=== PATIENT | male | born 1975 | race Caucasian/White ===

== ENCOUNTER 2021-12-04 09:00 | Outpatient (RCR) | payer OTHER, SELFPAY ==
--- NOTE | 2021-10-21 09:01 | PT.OIE ---
Current Diagnoses Scoliosis, unspecified (10/21/21) Low back pain, unspecified (10/21/21) Abnormal posture (10/21/21) Weakness (10/21/21) Visit Care Team Role Provider Type Eliu Domínguez DO Attending Provider Non-Staff Family Provider Primary Care Provider Referring Provider Specialty: Family Practice Address: [address] [place] [address], [id number] Email: Physical Therapy Initial Evaluation PT-OP-A Visit Information Start: 10/17/21 16:34 Freq: Status: Active Protocol: Document 10/21/21 09:01 SAK (Rec: 10/21/21 09:56 SAK [id number]) Out-Patient Physical Therapy Visit Information Visit Information Visit Type Initial Evaluation Visit Start Time 09:00 Visit Stop Time 09:45 Total Visit Minutes 45 Visit Number 1 Evaluation Information Evaluation Date 10/21/21 PT-OP-B Current Condition Start: 10/17/21 16:34 Freq: Status: Active Protocol: Document 10/21/21 09:01 SAK (Rec: 10/21/21 09:56 SAK [id number]) Current Condition History of Current Condition Onset Date 2018 Current Complaints persistent LBP History of Current Condition Went running one night 2018 , a little sore in low back , more sore next day. After resting for a week without improvement started PT, thought all better. Pain came back, had more PT, never has completely gone away and continues to limit his activity. Does PT HEP 4x/wk plus weight lifting after PT exercises. Feels ok after the workouts. Most pain when bending down to pick something up, increased pain with sitting in car , pain when first getting up in am, and with running. Now does inimal running, doing on soft surfaces, puts only 300 miles on a pair of shoes before replacing. 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 Retired from [employer] in November, at most recent appointment with physician discussed chronic pain and was referred to PT. 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 Has Theragun, has foam roller. Sleeps on chest trying to more often sleep on side. Does road and mountain bikiing as well as swimming several times per week, mostly freestyle and breaths only to left. Has had gait and running form evaluation, reports he lands with neutral foot. 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 swims 2 1/2 miles per week primarily freestyle, pain-free Treatment Goals Patient/Caregiver Goals pain-free mobility Prior Functional Status Baseline Function- ADL's Independent Baseline Function- Mobility Independent Baseline Function- Gait indep Baseline Function- Recreation/Hobbies no pain with any recreation Current Functional Impairments (Reported) Functional Limitations- ADL's painful Functional Limitations- Mobility/Gait painful Functional Limitations- Work/School retired Functional Limitations- Recreation/ painful Hobbies PT-OP-C Subjective Start: 10/17/21 16:34 Freq: Status: Active Protocol: Document 10/21/21 09:01 [facility] (Rec: 10/22/21 08:56 [facility] [id number]) OP-PT Pain Assessment Pain Assessment Grid Paper Pain Assessment Grid Completed Yes Location left lumbar spine Intensity 3 Scale Used Numeric (0 - 10) Description Aching,Burning,Tightness Frequency Frequent Pain Aggravating Factors Position,Activity Home Pain Medication Use Pain Medications Used No PT-OP-G Mobility & Gait Start: 10/17/21 16:34 Freq: Status: Active Protocol: Document 10/21/21 09:01 [facility] (Rec: 10/22/21 08:56 [facility] [id number]) OP Gait Assessment Gait Gait Assistance Required: Independent Assistive Devices Assistive Device None PT-OP-H Neuro Start: 10/17/21 16:34 Freq: Status: Active Protocol: Document 10/21/21 09:01 [facility] (Rec: 10/22/21 08:56 [facility] [id number]) Sensation Evaluation Gross Sensation Gross Sensation WNL PT-OP-J Posture/Palpation/Skin Start: 10/17/21 16:34 Freq: Status: Active Protocol: Document 10/21/21 09:01 [facility] (Rec: 10/22/21 08:56 [facility] [id number]) Posture Evaluation Position Standing T-Spine Posture Flexible Scoliosis on (R), Fixed Scoliosis on (R) Thorax Posture (R) Prominent L-Spine Posture Fixed Scoliosis on (L) Arm Posture (L) Neutral,(R) Neutral Pelvis Posture Neutral Palpation Assessment Location left L#$ Palpation Findings Soft Tissue Tightness, Tenderness PT-OP-K Range of Motion Start: 10/17/21 16:34 Freq: Status: Active Protocol: Document 10/21/21 09:01 [facility] (Rec: 10/22/21 08:56 [facility] [id number]) Lumbar Spine Range of Motion Lumbar Spine Active Flexion 40 Extension 20 Rotation Left 15 Rotation Right 20 Lateral Flexion Left 40 Lateral Flexion Right 30 Comments painful left sidebending Hip Goniometric Range of Motion Hip Left Flexion w/Knee Flexed 120 Straight Leg Raise 60 Internal Rotation 15 External Rotation 50 Right Flexion w/Knee Flexed 130 Straight Leg Raise 70 Internal Rotation 30 External Rotation 70 Hip ROM Limitations Hip ROM Limitations Soft Tissue Tightness PT-OP-L Special Tests Start: 10/17/21 16:34 Freq: Status: Active Protocol: Document 10/21/21 09:01 [facility] (Rec: 10/22/21 11:03 [facility] [id number]) Special Tests Lumbar Spine Special Tests Straight Leg Raise Test Results negative Standing Flexion Test Results decreased ROM, no radicular symptoms Slump Test Results negative Neural Special Tests- Lower Body Sciatic Nerve Tension Test Results negative PT-OP-M Strength Start: 10/17/21 16:34 Freq: Status: Active Protocol: Document 10/21/21 09:01 [facility] (Rec: 10/22/21 11:03 [facility] [id number]) Hip Strength Hip Manual Muscle Testing Left Flexion (L2) 4+ Good+ Extension (S1) 4+ Good+ Abduction 4+ Good+ Adduction 4+ Good+ External Rotation 4 Good Internal Rotation 4 Good Right Flexion (L2) 4+ Good+ Extension (S1) 4 Good Abduction 4+ Good+ Adduction 4+ Good+ External Rotation 4 Good Internal Rotation 4+ Good+ Knee Strength Knee Manual Muscle Testing Left Flexion (S2) 5 Normal Extension (L3) 5 Normal Right Flexion (S2) 5 Normal Extension (L3) 5 Normal Ankle/Foot Strength Ankle and Foot Manual Muscle Testing Left Dorsiflexion (L4) 5 Normal Plantarflexion (S1) 5 Normal Right Dorsiflexion (L4) 5 Normal Plantarflexion (S1) 5 Normal PT-OP-Q Treatments Start: 10/17/21 16:34 Freq: Status: Active Protocol: Document 10/21/21 09:01 [facility] (Rec: 10/22/21 11:03 [facility] [id number]) Self-Care/Home Management Treatment Education Patient Education Body Mechanics,Home Exercise Program Other Education bed positioning use of pillow between knees and towel under side self-examination of habitual postures and movements try breathing to with swimming open book exercise PT-OP-R Modalities Start: 10/17/21 16:34 Freq: Status: Active Protocol: Document 10/21/21 09:01 [facility] (Rec: 10/22/21 11:03 [facility] [id number]) Hot Pack/Cold Pack Treatment Hot Pack Location lumbar spine Patient Position Hooklying Patient Tolerance Good PT-OP-T Assessment and Plan Start: 10/17/21 16:34 Freq: Status: Active Protocol: Document 10/21/21 09:01 [facility] (Rec: 10/21/21 09:56 [facility] [id number]) Physical Therapy Assessment Rehab Potential Rehabilitation Potential Good Evaluation Complexity Number of Personal Factors/Comorbidities 1-2 Number of Body Systems Impaired 3 Clinical Presentation at Evaluation Evolving Impairments Impairments Activity Tolerance,Pain,Soft Tissue Mobility,Strength Goals Three Impairment habitual movement patterns and movements contributing to pain Impairment Patient swims up to 2 miles 3x /wk and only turns head to the right to breath , sleeps prone, potential other habitual posturing and movement contributing to pain Short Term Goal (STG) Patient to be able to begin turning head bilaterally to be able to breath during swimming, modify sleep positioning and work to identify any other habitual movements or positions that may conribute to his pain and movement impairment STG Duration 11/20/21 [facility] Living Goal (LTG) Patient will demonstrate good understanding of potential contribution of habitual postures and movements to his pain. LTG Duration 12/21/21 Two Impairment strength and ROM impairments, scoliosis Impairment muscle imbalances noted in core and hips including decreased ability to stabilize core, decreased flexibility left hip, decreased lumbar rotation, decreased hip extension right. 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 Pain onset was after a run in 2018, he now limits his running to occasional and shorter distances on softer surfaces, and replaces his running shoes frequently. Has had prior PT , massage therapy, gait and running evaluation. Evaluation reveals impairments in ROM and strength in hips and lumbar spine, mild scolioosis right thoracic left lumbar increased evidence with forward flexion , pain left sidebending, dec lumbar rotation to the left , weak right hip ext, decreased core stabilization, pain to palp left lateral L3-4 region with decreased mobility. Feel he would benefit from physical therapy to review current PT HEP and weight-lifting routine for correct mechanics and core stabilization, modify as indicated to address above impairments. Modalities and manual therapy as indicated for decreased pain and improved soft tissue and joint mobility. Discussed the importance of examining habitual movements and posturing for potential contributions and recommended patient work to be able to turn head bilaterally to breath with swimming. Patient instructed in importance of spinal support with sleeping, discontinue sleeping prone, used SHARA technique for demonstration and was issued written handout. Discussed POC and patient is in agreement. He is highly motivated and receptive to instruction and feedback. Physical Therapy Plan Frequency and Duration Frequency of Treatment 2x/Week Duration of Treatment 8 Plan of Care Start Date 10/21/21 Plan of Care End Date 12/21/21 Therapeutic Interventions Therapeutic Interventions Aquatic Therapy Next Visit Focus/Plan Next Note Type Treatment Note Next Visit Plan Review HEP and weight-lifting mechanics, discuss any habitual postures and movements identified, review open book exercise with manual facilitation, supine trunk rotation with therapy ball, instruct in self-massage with ball, do Sy test.
--- NOTE | 2021-10-23 16:29 | PT.OTN ---
Current Diagnoses Scoliosis, unspecified (10/23/21) Low back pain, unspecified (10/23/21) Abnormal posture (10/23/21) Weakness (10/23/21) Physical Therapy Treatment Note PT-OP-A Visit Information Start: 10/17/21 16:34 Freq: Status: Active Protocol: Document 10/23/21 16:07 SAK (Rec: 10/23/21 16:29 SAK [id number]) Out-Patient Physical Therapy Visit Information Visit Information Visit Type Treatment Note Visit Start Time 09:00 Visit Stop Time 09:55 Total Visit Minutes 55 Visit Number 2 Evaluation Information Evaluation Date 10/21/21 PT-OP-B Current Condition Start: 10/17/21 16:34 Freq: Status: Active Protocol: Document 10/23/21 16:07 SAK (Rec: 10/23/21 16:29 SAK [id number]) Current Condition History of Current Condition Onset Date 2017 Current Complaints persistent LBP History of Current Condition Went running one night 2018 , a little sore in low back , more sore next day. After resting for a week without improvement started PT, thought all better. Pain came back, had more PT, never has completely gone away and continues to limit his activity. Does PT HEP 4x/wk plus weight lifting after PT exercises. Feels ok after the workouts. Most pain when bending down to pick something up, increased pain with sitting in car , pain when first getting up in am, and with running. Now does inimal running, doing on soft surfaces, puts only 300 miles on a pair of shoes before replacing. 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 Retired from [employer] in November, at most recent appointment with physician discussed chronic pain and was referred to PT. 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 Has Theragun, has foam roller. Sleeps on chest trying to more often sleep on side. Does road and mountain bikiing as well as swimming several times per week, mostly freestyle and breaths only to left. Has had gait and running form evaluation, reports he lands with neutral foot. 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 swims 2 1/2 miles per week primarily freestyle, pain-free Treatment Goals Patient/Caregiver Goals pain-free mobility Prior Functional Status Baseline Function- ADL's Independent Baseline Function- Mobility Independent Baseline Function- Gait indep Baseline Function- Recreation/Hobbies no pain with any recreation Baseline Function- Other bunions to left greater than right Current Functional Impairments (Reported) Functional Limitations- ADL's painful Functional Limitations- Mobility/Gait painful Functional Limitations- Work/School retired Functional Limitations- Recreation/ painful Hobbies PT-OP-C Subjective Start: 10/17/21 16:34 Freq: Status: Active Protocol: Document 10/23/21 16:07 [facility] (Rec: 10/23/21 16:29 [facility] [id number]) OP-PT Subjective Patient Comments Patient Comments Reports noticed some twinging with some asymmetrical weight- lifting movements. Tried to do to head turning for breathing with swimming but had difficulty. States does use a therapy ball for self- massage occasionally in low back. Tried using pillow for spinal support, no big difference noted, not sure if will continue. PT-OP-G Mobility & Gait Start: 10/17/21 16:34 Freq: Status: Active Protocol: Document 10/21/21 09:01 [facility] (Rec: 10/22/21 08:56 [facility] [id number]) OP Gait Assessment Gait Gait Assistance Required: Independent Assistive Devices Assistive Device None PT-OP-H Neuro Start: 10/17/21 16:34 Freq: Status: Active Protocol: Document 10/21/21 09:01 [facility] (Rec: 10/22/21 08:56 [facility] [id number]) Sensation Evaluation Gross Sensation Gross Sensation WNL PT-OP-J Posture/Palpation/Skin Start: 10/17/21 16:34 Freq: Status: Active Protocol: Document 10/21/21 09:01 [facility] (Rec: 10/22/21 08:56 [facility] [id number]) Posture Evaluation Position Standing T-Spine Posture Flexible Scoliosis on (R), Fixed Scoliosis on (R) Thorax Posture (R) Prominent L-Spine Posture Fixed Scoliosis on (L) Arm Posture (L) Neutral,(R) Neutral Pelvis Posture Neutral Palpation Assessment Location left L#$ Palpation Findings Soft Tissue Tightness, Tenderness PT-OP-K Range of Motion Start: 10/17/21 16:34 Freq: Status: Active Protocol: Document 10/21/21 09:01 [facility] (Rec: 10/22/21 08:56 [facility] [id number]) Lumbar Spine Range of Motion Lumbar Spine Active Flexion 40 Extension 20 Rotation Left 15 Rotation Right 20 Lateral Flexion Left 40 Lateral Flexion Right 30 Comments painful left sidebending Hip Goniometric Range of Motion Hip Left Flexion w/Knee Flexed 120 Straight Leg Raise 60 Internal Rotation 15 External Rotation 50 Right Flexion w/Knee Flexed 130 Straight Leg Raise 70 Internal Rotation 30 External Rotation 70 Hip ROM Limitations Hip ROM Limitations Soft Tissue Tightness PT-OP-L Special Tests Start: 10/17/21 16:34 Freq: Status: Active Protocol: Document 10/21/21 09:01 [facility] (Rec: 10/22/21 11:03 [facility] [id number]) Special Tests Lumbar Spine Special Tests Straight Leg Raise Test Results negative Standing Flexion Test Results decreased ROM, no radicular symptoms Slump Test Results negative Neural Special Tests- Lower Body Sciatic Nerve Tension Test Results negative PT-OP-M Strength Start: 10/17/21 16:34 Freq: Status: Active Protocol: Document 10/21/21 09:01 [facility] (Rec: 10/22/21 11:03 [facility] [id number]) Hip Strength Hip Manual Muscle Testing Left Flexion (L2) 4+ Good+ Extension (S1) 4+ Good+ Abduction 4+ Good+ Adduction 4+ Good+ External Rotation 4 Good Internal Rotation 4 Good Right Flexion (L2) 4+ Good+ Extension (S1) 4 Good Abduction 4+ Good+ Adduction 4+ Good+ External Rotation 4 Good Internal Rotation 4+ Good+ Knee Strength Knee Manual Muscle Testing Left Flexion (S2) 5 Normal Extension (L3) 5 Normal Right Flexion (S2) 5 Normal Extension (L3) 5 Normal Ankle/Foot Strength Ankle and Foot Manual Muscle Testing Left Dorsiflexion (L4) 5 Normal Plantarflexion (S1) 5 Normal Right Dorsiflexion (L4) 5 Normal Plantarflexion (S1) 5 Normal PT-OP-Q Treatments Start: 10/17/21 16:34 Freq: Status: Active Protocol: Document 10/23/21 16:07 [facility] (Rec: 10/23/21 16:29 [facility] [id number]) Therapeutic Exercises Supine Exercises deondre test Reps/Minutes to x 10 Prone Exercises child's pose Prone Exercise Name forward and lateral Reps/Minutes 2x cat/cow Reps/Minutes 5x Comments cues for segmental movement, breath with movement bird dog Prone Exercise Name regular, with UE out to side Reps/Minutes 10x Comments cues for neutral pelvis Sidelying Exercises side plank Comments verbal review open book Reps/Minutes 5x to Comments verbal and manual cues for segmental movement, deep breath Sitting Exercises piriformis stretch Comments encouraged inc stretch of left ; in waiting room right crossed over left Standing Exercises lateral trunk flexion Reps/Minutes 1x30 to lift Resistance 10# to Reps/Minutes 5x Comments picture taken for symmetry at hips and pelvis, verbal and manual cues, Manual Therapy Treatment Soft Tissue Mobilization lumbar paraspinals, QL Body Location to left greater than right Mobilization Type Myofascial Release,Strumming, Sustained Pressure Intensity/Depth Moderate Body Position Prone Self-Care/Home Management Treatment Education Patient Education Body Mechanics,Home Exercise Program,Posture Other Education continue self-examination of habitual postures and movements, inc self-massage with ball, do symmetrical load lift, dec trunk rotation with bird dog PT-OP-R Modalities Start: 10/17/21 16:34 Freq: Status: Active Protocol: Document 10/23/21 16:07 [facility] (Rec: 10/23/21 16:29 [facility] [id number]) Hot Pack/Cold Pack Treatment Hot Pack Location lumbar spine Patient Position Prone Treatment Duration (minutes) 15 Patient Tolerance Good PT-OP-T Assessment and Plan Start: 10/17/21 16:34 Freq: Status: Active Protocol: Document 10/23/21 16:07 [facility] (Rec: 10/23/21 16:29 [facility] [id number]) Physical Therapy Assessment Goals Three Impairment habitual movement patterns and movements contributing to pain Impairment Patient swims up to 2 miles 3x /wk and only turns head to the right to breath , sleeps prone, potential other habitual posturing and movement contributing to pain Short Term Goal (STG) Patient to be able to begin turning head bilaterally to be able to breath during swimming, modify sleep positioning and work to identify any other habitual movements or positions that may conribute to his pain and movement impairment STG Duration 11/20/21 [facility] Goal (LTG) Patient will demonstrate good understanding of potential contribution of habitual postures and movements to his pain. LTG Duration 12/21/21 Two Impairment strength and ROM impairments, scoliosis Impairment muscle imbalances noted in core and hips including decreased ability to stabilize core, decreased flexibility left hip, decreased lumbar rotation, decreased hip extension right. Mild scoliosis Short Term Goal (STG) Patient's current HEP and weight-lifting routine to be reviewed for correct body mechanics, core stabilization and performance STG Duration 11/20/21 [facility] Goal (LTG) Patient will be able to perform HEP and weight-lifting routine with good mechanics and core stabilization and demonstrate 5/5 muscle strength bilaterally and symmetrical flexibility and ROM within 5 deg all motions hips and lumbar spine LTG Duration 12/21/21 One Impairment pain left low back 3/10 Impairment pain increases above 3/10 with bending, prolonged sitting or standing, sleeping [facility]dc Goal (LTG) Pain no greater than 1/10 with all usual activities and positions to improve quality of life and ability to do prior activities LTG Duration 12/21/21 Assessment Summary Assessment Patient tried use of pillow for support in bed, inconclusive in benefit. Trying to change swimming technique to allow for bilateral head turns; very difficult. Recommendations for modifications of some of his HEP done today as noted above, written handout issued. Patient brought his workout folder with ex photos for further review, and will bring next session as well. STM to left lumbar paraspinals and QL due to palpable tightness followed by moist heat today. Continue to stress self- examination for postures and movements that are asymmetrical. Feel patient bunions may be contributory as well. Physical Therapy Plan Frequency and Duration Frequency of Treatment 2x/Week Duration of Treatment 8 Plan of Care Start Date 10/21/21 Plan of Care End Date 12/21/21 Therapeutic Interventions Therapeutic Interventions Aquatic Therapy Next Visit Focus/Plan Next Note Type Treatment Note Next Visit Plan consider ultrasound, kinesiotape to left QL, paraspinals, manual traction trial, continue review and modification as indicated for patient's current HEP. Further single leg work as patient less stable SLS left, shuttle balance, single leg heel raise.
--- NOTE | 2021-10-29 14:21 | PT.OTN ---
Current Diagnoses Scoliosis, unspecified (10/29/21) Low back pain, unspecified (10/29/21) Abnormal posture (10/29/21) Weakness (10/29/21) Physical Therapy Treatment Note PT-OP-A Visit Information Start: 10/17/21 16:34 Freq: Status: Active Protocol: Document 10/29/21 09:01 [facility] (Rec: 10/29/21 09:44 [facility] [id number]) Out-Patient Physical Therapy Visit Information Visit Information Visit Type Treatment Note Visit Start Time 09:00 Visit Stop Time 09:55 Total Visit Minutes 55 Visit Number 3 Evaluation Information Evaluation Date 10/21/21 PT-OP-B Current Condition Start: 10/17/21 16:34 Freq: Status: Active Protocol: Document 10/29/21 09:01 [facility] (Rec: 10/29/21 09:44 [facility] [id number]) Current Condition History of Current Condition Onset Date 2018 Current Complaints persistent LBP History of Current Condition Went running one night 2018 , a little sore in low back , more sore next day. After resting for a week without improvement started PT, thought all better. Pain came back, had more PT, never has completely gone away and continues to limit his activity. Does PT HEP 4x/wk plus weight lifting after PT exercises. Feels ok after the workouts. Most pain when bending down to pick something up, increased pain with sitting in car , pain when first getting up in am, and with running. Now does inimal running, doing on soft surfaces, puts only 300 miles on a pair of shoes before replacing. 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 Retired from [employer] in November, at most recent appointment with physician discussed chronic pain and was referred to PT. 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 Has Theragun, has foam roller. Sleeps on chest trying to more often sleep on side. Does road and mountain bikiing as well as swimming several times per week, mostly freestyle and breaths only to left. Has had gait and running form evaluation, reports he lands with neutral foot. 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 Did a run yesterday, felt some pinch after PT and theragun. Trying to do more symmetrical loading with weight lifting. PT-OP-G Mobility & Gait Start: 10/17/21 16:34 Freq: Status: Active Protocol: Document 10/21/21 09:01 [facility] (Rec: 10/22/21 08:56 [facility] [id number]) OP Gait Assessment Gait Gait Assistance Required: Independent Assistive Devices Assistive Device None PT-OP-H Neuro Start: 10/17/21 16:34 Freq: Status: Active Protocol: Document 10/21/21 09:01 [facility] (Rec: 10/22/21 08:56 [facility] [id number]) Sensation Evaluation Gross Sensation Gross Sensation WNL PT-OP-J Posture/Palpation/Skin Start: 10/17/21 16:34 Freq: Status: Active Protocol: Document 10/21/21 09:01 [facility] (Rec: 10/22/21 08:56 [facility] [id number]) Posture Evaluation Position Standing T-Spine Posture Flexible Scoliosis on (R), Fixed Scoliosis on (R) Thorax Posture (R) Prominent L-Spine Posture Fixed Scoliosis on (L) Arm Posture (L) Neutral,(R) Neutral Pelvis Posture Neutral Palpation Assessment Location left L#$ Palpation Findings Soft Tissue Tightness, Tenderness PT-OP-K Range of Motion Start: 10/17/21 16:34 Freq: Status: Active Protocol: Document 10/21/21 09:01 [facility] (Rec: 10/22/21 08:56 [facility] [id number]) Lumbar Spine Range of Motion Lumbar Spine Active Flexion 40 Extension 20 Rotation Left 15 Rotation Right 20 Lateral Flexion Left 40 Lateral Flexion Right 30 Comments painful left sidebending Hip Goniometric Range of Motion Hip Left Flexion w/Knee Flexed 120 Straight Leg Raise 60 Internal Rotation 15 External Rotation 50 Right Flexion w/Knee Flexed 130 Straight Leg Raise 70 Internal Rotation 30 External Rotation 70 Hip ROM Limitations Hip ROM Limitations Soft Tissue Tightness PT-OP-L Special Tests Start: 10/17/21 16:34 Freq: Status: Active Protocol: Document 10/21/21 09:01 [facility] (Rec: 10/22/21 11:03 [facility] [id number]) Special Tests Lumbar Spine Special Tests Straight Leg Raise Test Results negative Standing Flexion Test Results decreased ROM, no radicular symptoms Slump Test Results negative Neural Special Tests- Lower Body Sciatic Nerve Tension Test Results negative PT-OP-M Strength Start: 10/17/21 16:34 Freq: Status: Active Protocol: Document 10/21/21 09:01 [facility] (Rec: 10/22/21 11:03 [facility] [id number]) Hip Strength Hip Manual Muscle Testing Left Flexion (L2) 4+ Good+ Extension (S1) 4+ Good+ Abduction 4+ Good+ Adduction 4+ Good+ External Rotation 4 Good Internal Rotation 4 Good Right Flexion (L2) 4+ Good+ Extension (S1) 4 Good Abduction 4+ Good+ Adduction 4+ Good+ External Rotation 4 Good Internal Rotation 4+ Good+ Knee Strength Knee Manual Muscle Testing Left Flexion (S2) 5 Normal Extension (L3) 5 Normal Right Flexion (S2) 5 Normal Extension (L3) 5 Normal Ankle/Foot Strength Ankle and Foot Manual Muscle Testing Left Dorsiflexion (L4) 5 Normal Plantarflexion (S1) 5 Normal Right Dorsiflexion (L4) 5 Normal Plantarflexion (S1) 5 Normal PT-OP-Q Treatments Start: 10/17/21 16:34 Freq: Status: Active Protocol: Document 10/29/21 09:01 [facility] (Rec: 10/29/21 09:44 [facility] [id number]) Cardio Equipment Treadmill Duration (Minutes) 5 Speed 3 Incline 0 Therapeutic Exercises Prone Exercises child's pose Prone Exercise Name forward and lateral, manual QL MWM Reps/Minutes 2x Comments bent elbows to dec lat stretch and inc QL stretch Sitting Exercises butt walking Reps/Minutes 4 ft x 2 Comments verbal cues, written reminder issued Manual Therapy Treatment Soft Tissue Mobilization lumbar paraspinals, QL Body Location to left greater than right Mobilization Type Myofascial Release,Strumming, Sustained Pressure Intensity/Depth Moderate Body Position Prone Self-Care/Home Management Treatment Education Patient Education Home Exercise Program Other Education continue self-examination of habitual postures and movements, modified self- massage with ball into lateral QL PT-OP-R Modalities Start: 10/17/21 16:34 Freq: Status: Active Protocol: Document 10/29/21 09:01 [facility] (Rec: 10/30/21 14:21 [facility] [id number]) Ultrasound Therapy Treatment left QL Treatment Duration (minutes) 8 Patient Position Prone Frequency Setting (mHz) 1 Mode Setting Continuous Duty Cycle 100% Intensity Setting (w/cm2) 1.5 PT-OP-T Assessment and Plan Start: 10/17/21 16:34 Freq: Status: Active Protocol: Document 10/29/21 09:01 [facility] (Rec: 10/29/21 09:44 [facility] [id number]) Physical Therapy Assessment Goals Three Impairment habitual movement patterns and movements contributing to pain Impairment Patient swims up to 2 miles 3x /wk and only turns head to the right to breath , sleeps prone, potential other habitual posturing and movement contributing to pain Short Term Goal (STG) Patient to be able to begin turning head bilaterally to be able to breath during swimming, modify sleep positioning and work to identify any other habitual movements or positions that may conribute to his pain and movement impairment STG Duration 11/20/21 Humidifier Attendant Goal (LTG) Patient will demonstrate good understanding of potential contribution of habitual postures and movements to his pain. LTG Duration 12/21/21 Two Impairment strength and ROM impairments, scoliosis Impairment muscle imbalances noted in core and hips including decreased ability to stabilize core, decreased flexibility left hip, decreased lumbar rotation, decreased hip extension right. Mild scoliosis Short Term Goal (STG) Patient's current HEP and weight-lifting routine to be reviewed for correct body mechanics, core stabilization and performance STG Duration 11/20/21 Custodial Goal (LTG) Patient will be able to perform HEP and weight-lifting routine with good mechanics and core stabilization and demonstrate 5/5 muscle strength bilaterally and symmetrical flexibility and ROM within 5 deg all motions hips and lumbar spine LTG Duration 12/21/21 One Impairment pain left low back 3/10 Impairment pain increases above 3/10 with bending, prolonged sitting or standing, sleeping Custodial Goal (LTG) Pain no greater than 1/10 with all usual activities and positions to improve quality of life and ability to do prior activities LTG Duration 12/21/21 Assessment Summary Assessment Patient felt increased QL stretch with modified lateral child's pose, and muscle activation with QL butt walk. Good tolerance for increased soft tissue mobilization to QL and for trial ultrasound. Physical Therapy Plan Frequency and Duration Frequency of Treatment 2x/Week Duration of Treatment 8 weeks Plan of Care Start Date 10/21/21 Plan of Care End Date 12/21/21 Next Visit Focus/Plan Next Note Type Treatment Note Next Visit Plan Assess response to ultrasound, consider kinesiotape to left QL, paraspinals, manual traction trial, continue review and modification as indicated for patient's current HEP. Further single leg work as patient less stable SLS left, shuttle balance, single leg heel raise .
--- NOTE | 2021-11-04 10:20 | PT.OTN ---
Current Diagnoses Scoliosis, unspecified (11/04/21) Low back pain, unspecified (11/04/21) Abnormal posture (11/04/21) Weakness (11/04/21) Physical Therapy Treatment Note PT-OP-A Visit Information Start: 10/17/21 16:34 Freq: Status: Active Protocol: Document 11/04/21 08:57 [facility] (Rec: 11/04/21 10:20 [facility] [id number]) Out-Patient Physical Therapy Visit Information Visit Information Visit Type Treatment Note Visit Start Time 09:00 Visit Stop Time 09:55 Total Visit Minutes 55 Visit Number 4 Evaluation Information Evaluation Date 10/21/21 PT-OP-B Current Condition Start: 10/17/21 16:34 Freq: Status: Active Protocol: Document 11/04/21 08:57 [facility] (Rec: 11/04/21 10:20 [facility] [id number]) Current Condition History of Current Condition Onset Date 2018 Current Complaints persistent LBP History of Current Condition Went running one night 2018 , a little sore in low back , more sore next day. After resting for a week without improvement started PT, thought all better. Pain came back, had more PT, never has completely gone away and continues to limit his activity. Does PT HEP 4x/wk plus weight lifting after PT exercises. Feels ok after the workouts. Most pain when bending down to pick something up, increased pain with sitting in car , pain when first getting up in am, and with running. Now does inimal running, doing on soft surfaces, puts only 300 miles on a pair of shoes before replacing. 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 Retired from [employer] in November, at most recent appointment with physician discussed chronic pain and was referred to PT. 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 Has Theragun, has foam roller. Sleeps on chest trying to more often sleep on side. Does road and mountain bikiing as well as swimming several times per week, mostly freestyle and breaths only to left. Has had gait and running form evaluation, reports he lands with neutral foot. 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 Had colonoscopy last week, so not as much exercise. Likes butt walk exercise and brought PT a picture of that ex he found online. PT-OP-G Mobility & Gait Start: 10/17/21 16:34 Freq: Status: Active Protocol: Document 10/21/21 09:01 [facility] (Rec: 10/22/21 08:56 [facility] [id number]) OP Gait Assessment Gait Gait Assistance Required: Independent Assistive Devices Assistive Device None PT-OP-H Neuro Start: 10/17/21 16:34 Freq: Status: Active Protocol: Document 10/21/21 09:01 [facility] (Rec: 10/22/21 08:56 [facility] [id number]) Sensation Evaluation Gross Sensation Gross Sensation WNL PT-OP-J Posture/Palpation/Skin Start: 10/17/21 16:34 Freq: Status: Active Protocol: Document 10/21/21 09:01 [facility] (Rec: 10/22/21 08:56 [facility] [id number]) Posture Evaluation Position Standing T-Spine Posture Flexible Scoliosis on (R), Fixed Scoliosis on (R) Thorax Posture (R) Prominent L-Spine Posture Fixed Scoliosis on (L) Arm Posture (L) Neutral,(R) Neutral Pelvis Posture Neutral Palpation Assessment Location left L#$ Palpation Findings Soft Tissue Tightness, Tenderness PT-OP-K Range of Motion Start: 10/17/21 16:34 Freq: Status: Active Protocol: Document 10/21/21 09:01 [facility] (Rec: 10/22/21 08:56 [facility] [id number]) Lumbar Spine Range of Motion Lumbar Spine Active Flexion 40 Extension 20 Rotation Left 15 Rotation Right 20 Lateral Flexion Left 40 Lateral Flexion Right 30 Comments painful left sidebending Hip Goniometric Range of Motion Hip Left Flexion w/Knee Flexed 120 Straight Leg Raise 60 Internal Rotation 15 External Rotation 50 Right Flexion w/Knee Flexed 130 Straight Leg Raise 70 Internal Rotation 30 External Rotation 70 Hip ROM Limitations Hip ROM Limitations Soft Tissue Tightness PT-OP-L Special Tests Start: 10/17/21 16:34 Freq: Status: Active Protocol: Document 10/21/21 09:01 [facility] (Rec: 10/22/21 11:03 [facility] [id number]) Special Tests Lumbar Spine Special Tests Straight Leg Raise Test Results negative Standing Flexion Test Results decreased ROM, no radicular symptoms Slump Test Results negative Neural Special Tests- Lower Body Sciatic Nerve Tension Test Results negative PT-OP-M Strength Start: 10/17/21 16:34 Freq: Status: Active Protocol: Document 10/21/21 09:01 [facility] (Rec: 10/22/21 11:03 [facility] [id number]) Hip Strength Hip Manual Muscle Testing Left Flexion (L2) 4+ Good+ Extension (S1) 4+ Good+ Abduction 4+ Good+ Adduction 4+ Good+ External Rotation 4 Good Internal Rotation 4 Good Right Flexion (L2) 4+ Good+ Extension (S1) 4 Good Abduction 4+ Good+ Adduction 4+ Good+ External Rotation 4 Good Internal Rotation 4+ Good+ Knee Strength Knee Manual Muscle Testing Left Flexion (S2) 5 Normal Extension (L3) 5 Normal Right Flexion (S2) 5 Normal Extension (L3) 5 Normal Ankle/Foot Strength Ankle and Foot Manual Muscle Testing Left Dorsiflexion (L4) 5 Normal Plantarflexion (S1) 5 Normal Right Dorsiflexion (L4) 5 Normal Plantarflexion (S1) 5 Normal PT-OP-Q Treatments Start: 10/17/21 16:34 Freq: Status: Active Protocol: Document 11/04/21 08:57 [facility] (Rec: 11/04/21 10:20 [facility] [id number]) Cardio Equipment Elliptical Duration (Minutes) 5 Resistance 10 Other for physiological warm-up Therapeutic Exercises Sidelying Exercises QL Reps/Minutes 2x30 Sitting Exercises butt walking Comments verbal review Standing Exercises hip hike Side bilateral Reps/Minutes 10x Comments stair Manual Therapy Treatment Soft Tissue Mobilization lumbar paraspinals, QL Body Location to left greater than right Mobilization Type Myofascial Release,Strumming, Sustained Pressure Intensity/Depth Moderate Body Position Sidelying Comments top leg straight, top arm overhead Self-Care/Home Management Treatment Education Patient Education Home Exercise Program,Pain Management Other Education updated HEP with hip hike and sidelying QL stretch issued information about Dr. Sadler with brief introduction to idea of dry needling as treatment adjunct, patient to look up. PT-OP-R Modalities Start: 10/17/21 16:34 Freq: Status: Active Protocol: Document 11/04/21 08:57 [facility] (Rec: 11/04/21 10:20 [facility] [id number]) Ultrasound Therapy Treatment left QL Treatment Duration (minutes) 8 Patient Position Prone Frequency Setting (mHz) 1 Mode Setting Continuous Duty Cycle 100% Intensity Setting (w/cm2) 1.5 PT-OP-T Assessment and Plan Start: 10/17/21 16:34 Freq: Status: Active Protocol: Document 11/04/21 08:57 [facility] (Rec: 11/04/21 10:20 [facility] [id number]) Physical Therapy Assessment Goals Three Impairment habitual movement patterns and movements contributing to pain Impairment Patient swims up to 2 miles 3x /wk and only turns head to the right to breath , sleeps prone, potential other habitual posturing and movement contributing to pain Short Term Goal (STG) Patient to be able to begin turning head bilaterally to be able to breath during swimming, modify sleep positioning and work to identify any other habitual movements or positions that may conribute to his pain and movement impairment STG Duration 11/20/21 Purchasing Assistant Goal (LTG) Patient will demonstrate good understanding of potential contribution of habitual postures and movements to his pain. LTG Duration 12/21/21 Two Impairment strength and ROM impairments, scoliosis Impairment muscle imbalances noted in core and hips including decreased ability to stabilize core, decreased flexibility left hip, decreased lumbar rotation, decreased hip extension right. Mild scoliosis Short Term Goal (STG) Patient's current HEP and weight-lifting routine to be reviewed for correct body mechanics, core stabilization and performance STG Duration 11/20/21 Fpc Goal (LTG) Patient will be able to perform HEP and weight-lifting routine with good mechanics and core stabilization and demonstrate 5/5 muscle strength bilaterally and symmetrical flexibility and ROM within 5 deg all motions hips and lumbar spine LTG Duration 12/21/21 One Impairment pain left low back 3/10 Impairment pain increases above 3/10 with bending, prolonged sitting or standing, sleeping Fpc Goal (LTG) Pain no greater than 1/10 with all usual activities and positions to improve quality of life and ability to do prior activities LTG Duration 12/21/21 Assessment Summary Assessment Good QL activation and stretch with hip hike and sidelying stretch. Tender points in QL with manual work. Patient verbalizing improvement in sleep. Will be taking run today to see if improved tolerance. Physical Therapy Plan Frequency and Duration Frequency of Treatment 2x/Week Duration of Treatment 8 weeks Plan of Care Start Date 10/21/21 Plan of Care End Date 12/21/21 Therapeutic Interventions Therapeutic Interventions Aquatic Therapy,Manual Therapy ,Neuromuscular Re-education, Patient/Caregiver Education, Self-Care/Home Management, Therapeutic Activities, Therapeutic Exercises Modalities Cold Pack/Ice Massage,Electric Stimulation,Hot Packs, Traction- Mechanical, Ultrasound Next Visit Focus/Plan Next Note Type Treatment Note Next Visit Plan further discussion of dry needling, review updated HEP with return patient demo as needed. Continue manual therapy and ultrasound, QL stretch and strengthen.
--- NOTE | 2021-11-06 16:38 | PT.OTN ---
Current Diagnoses Scoliosis, unspecified (11/06/21) Low back pain, unspecified (11/06/21) Abnormal posture (11/06/21) Weakness (11/06/21) Physical Therapy Treatment Note PT-OP-A Visit Information Start: 10/17/21 16:34 Freq: Status: Active Protocol: Document 11/06/21 09:00 [facility] (Rec: 11/06/21 09:52 [facility] [id number]) Out-Patient Physical Therapy Visit Information Visit Information Visit Type Treatment Note Visit Start Time 09:00 Visit Stop Time 09:55 Total Visit Minutes 55 Visit Number 5 Evaluation Information Evaluation Date 10/21/21 PT-OP-B Current Condition Start: 10/17/21 16:34 Freq: Status: Active Protocol: Document 11/06/21 09:00 [facility] (Rec: 11/06/21 09:52 [facility] [id number]) Current Condition History of Current Condition Onset Date 2018 Current Complaints persistent LBP History of Current Condition Went running one night 2018 , a little sore in low back , more sore next day. After resting for a week without improvement started PT, thought all better. Pain came back, had more PT, never has completely gone away and continues to limit his activity. Does PT HEP 4x/wk plus weight lifting after PT exercises. Feels ok after the workouts. Most pain when bending down to pick something up, increased pain with sitting in car , pain when first getting up in am, and with running. Now does inimal running, doing on soft surfaces, puts only 300 miles on a pair of shoes before replacing. 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 Retired from [employer] in November, at most recent appointment with physician discussed chronic pain and was referred to PT. 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 Has Theragun, has foam roller. Sleeps on chest trying to more often sleep on side. Does road and mountain bikiing as well as swimming several times per week, mostly freestyle and breaths only to left. Has had gait and running form evaluation, reports he lands with neutral foot. 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 (Rec: 11/06/21 09:52 [facility] [id number]) OP-PT Subjective Patient Comments Patient Comments Pain improving, went through full menu of exercises yesterday. Went for a run after PT, 7 miles, good tolerance. Did butt walk using pole along spine noting challenge with upright posture . Still having difficulty with turning head bilaterally with swimming. States he feels 50% better. PT-OP-G Mobility & Gait Start: 10/17/21 16:34 Freq: Status: Active Protocol: Document 10/21/21 09:01 [facility] (Rec: 10/22/21 08:56 [facility] [id number]) OP Gait Assessment Gait Gait Assistance Required: Independent Assistive Devices Assistive Device None PT-OP-H Neuro Start: 10/17/21 16:34 Freq: Status: Active Protocol: Document 10/21/21 09:01 [facility] (Rec: 10/22/21 08:56 [facility] [id number]) Sensation Evaluation Gross Sensation Gross Sensation WNL PT-OP-J Posture/Palpation/Skin Start: 10/17/21 16:34 Freq: Status: Active Protocol: Document 10/21/21 09:01 [facility] (Rec: 10/22/21 08:56 [facility] [id number]) Posture Evaluation Position Standing T-Spine Posture Flexible Scoliosis on (R), Fixed Scoliosis on (R) Thorax Posture (R) Prominent L-Spine Posture Fixed Scoliosis on (L) Arm Posture (L) Neutral,(R) Neutral Pelvis Posture Neutral Palpation Assessment Location left L#$ Palpation Findings Soft Tissue Tightness, Tenderness PT-OP-K Range of Motion Start: 10/17/21 16:34 Freq: Status: Active Protocol: Document 10/21/21 09:01 [facility] (Rec: 10/22/21 08:56 [facility] [id number]) Lumbar Spine Range of Motion Lumbar Spine Active Flexion 40 Extension 20 Rotation Left 15 Rotation Right 20 Lateral Flexion Left 40 Lateral Flexion Right 30 Comments painful left sidebending Hip Goniometric Range of Motion Hip Left Flexion w/Knee Flexed 120 Straight Leg Raise 60 Internal Rotation 15 External Rotation 50 Right Flexion w/Knee Flexed 130 Straight Leg Raise 70 Internal Rotation 30 External Rotation 70 Hip ROM Limitations Hip ROM Limitations Soft Tissue Tightness PT-OP-L Special Tests Start: 10/17/21 16:34 Freq: Status: Active Protocol: Document 10/21/21 09:01 [facility] (Rec: 10/22/21 11:03 [facility] [id number]) Special Tests Lumbar Spine Special Tests Straight Leg Raise Test Results negative Standing Flexion Test Results decreased ROM, no radicular symptoms Slump Test Results negative Neural Special Tests- Lower Body Sciatic Nerve Tension Test Results negative PT-OP-M Strength Start: 10/17/21 16:34 Freq: Status: Active Protocol: Document 10/21/21 09:01 [facility] (Rec: 10/22/21 11:03 [facility] [id number]) Hip Strength Hip Manual Muscle Testing Left Flexion (L2) 4+ Good+ Extension (S1) 4+ Good+ Abduction 4+ Good+ Adduction 4+ Good+ External Rotation 4 Good Internal Rotation 4 Good Right Flexion (L2) 4+ Good+ Extension (S1) 4 Good Abduction 4+ Good+ Adduction 4+ Good+ External Rotation 4 Good Internal Rotation 4+ Good+ Knee Strength Knee Manual Muscle Testing Left Flexion (S2) 5 Normal Extension (L3) 5 Normal Right Flexion (S2) 5 Normal Extension (L3) 5 Normal Ankle/Foot Strength Ankle and Foot Manual Muscle Testing Left Dorsiflexion (L4) 5 Normal Plantarflexion (S1) 5 Normal Right Dorsiflexion (L4) 5 Normal Plantarflexion (S1) 5 Normal PT-OP-Q Treatments Start: 10/17/21 16:34 Freq: Status: Active Protocol: Document 11/06/21 09:00 [facility] (Rec: 11/06/21 09:52 [facility] [id number]) Cardio Equipment Elliptical Duration (Minutes) 5 Resistance 10 Other for physiological warm-up, cues for symmetrical movement Therapeutic Exercises Prone Exercises push-up Equipment Used BOSU, flat side up Reps/Minutes 5x Comments modification for HEP child's pose Prone Exercise Name forward and lateral Reps/Minutes 2x Comments bent elbows to dec lat stretch and inc QL stretch bird dog Prone Exercise Name regular, with UE/LE out to side Equipment Used 1/2 foam rollers Reps/Minutes 10x Comments cues for neutral pelvis Standing Exercises hip hike Side bilateral Equipment Used 5# ankle weights Reps/Minutes 10x Comments stair Manual Therapy Treatment Soft Tissue Mobilization lumbar paraspinals, QL Body Location left QL only Mobilization Type Myofascial Release,Strumming, Sustained Pressure Intensity/Depth Moderate Body Position Prone Self-Care/Home Management Treatment Education Other Education no new handout but reviewed adding ankle weight to hip hike an use of 1/2 foam rollers for bird dog. PT-OP-R Modalities Start: 10/17/21 16:34 Freq: Status: Active Protocol: Document 11/04/21 08:57 [facility] (Rec: 11/04/21 10:20 [facility] [id number]) Ultrasound Therapy Treatment left QL Treatment Duration (minutes) 8 Patient Position Prone Frequency Setting (mHz) 1 Mode Setting Continuous Duty Cycle 100% Intensity Setting (w/cm2) 1.5 PT-OP-T Assessment and Plan Start: 10/17/21 16:34 Freq: Status: Active Protocol: Document 11/06/21 09:00 [facility] (Rec: 11/06/21 09:52 [facility] [id number]) Physical Therapy Assessment Goals Three Impairment habitual movement patterns and movements contributing to pain Impairment Patient swims up to 2 miles 3x /wk and only turns head to the right to breath , sleeps prone, potential other habitual posturing and movement contributing to pain Short Term Goal (STG) Patient to be able to begin turning head bilaterally to be able to breath during swimming, modify sleep positioning and work to identify any other habitual movements or positions that may conribute to his pain and movement impairment STG Duration 11/20/21 Central Office Operator Supervisor Goal (LTG) Patient will demonstrate good understanding of potential contribution of habitual postures and movements to his pain. LTG Duration 12/21/21 Two Impairment strength and ROM impairments, scoliosis Impairment muscle imbalances noted in core and hips including decreased ability to stabilize core, decreased flexibility left hip, decreased lumbar rotation, decreased hip extension right. Mild scoliosis Short Term Goal (STG) Patient's current HEP and weight-lifting routine to be reviewed for correct body mechanics, core stabilization and performance STG Duration 11/20/21 Central Office Operator Supervisor Goal (LTG) Patient will be able to perform HEP and weight-lifting routine with good mechanics and core stabilization and demonstrate 5/5 muscle strength bilaterally and symmetrical flexibility and ROM within 5 deg all motions hips and lumbar spine LTG Duration 12/21/21 One Impairment pain left low back 3/10 Impairment pain increases above 3/10 with bending, prolonged sitting or standing, sleeping Mcc Goal (LTG) Pain no greater than 1/10 with all usual activities and positions to improve quality of life and ability to do prior activities LTG Duration 12/21/21 Assessment Summary Assessment Good functional improvement, decreased pain, patient reporting 50% improved. Challenged with addition of 5# wt to hip hike and 1/2 foam rollers to bird dog, cues for correct performance. Decreasing palpable tightness in left QL. Excellent HEP compliance. Physical Therapy Plan Frequency and Duration Frequency of Treatment 2x/Week Duration of Treatment 8 weeks Plan of Care Start Date 10/21/21 Plan of Care End Date 12/21/21 Therapeutic Interventions Therapeutic Interventions Aquatic Therapy,Manual Therapy ,Neuromuscular Re-education, Patient/Caregiver Education, Self-Care/Home Management, Therapeutic Activities, Therapeutic Exercises Modalities Cold Pack/Ice Massage,Electric Stimulation,Hot Packs, Traction- Mechanical, Ultrasound Next Visit Focus/Plan Next Note Type Treatment Note Next Visit Plan Check performance of butt walk , sidelying QL stretch. Consider addition of sidelying QL strengthening. Continue manual work
--- NOTE | 2021-11-13 18:59 | PT.OTN ---
Current Diagnoses Scoliosis, unspecified (11/13/21) Low back pain, unspecified (11/13/21) Abnormal posture (11/13/21) Weakness (11/13/21) Physical Therapy Treatment Note PT-OP-A Visit Information Start: 10/17/21 16:34 Freq: Status: Active Protocol: Document 11/13/21 09:12 [facility] (Rec: 11/13/21 09:58 [facility] [id number]) Out-Patient Physical Therapy Visit Information Visit Information Visit Type Treatment Note Visit Start Time 09:00 Visit Stop Time 09:56 Total Visit Minutes 56 Visit Number 7 Evaluation Information Evaluation Date 10/21/21 PT-OP-B Current Condition Start: 10/17/21 16:34 Freq: Status: Active Protocol: Document 11/13/21 09:12 [facility] (Rec: 11/17/21 18:58 [facility] [id number]) Current Condition History of Current Condition Onset Date 2018 Current Complaints persistent LBP History of Current Condition Went running one night 2018 , a little sore in low back , more sore next day. After resting for a week without improvement started PT, thought all better. Pain came back, had more PT, never has completely gone away and continues to limit his activity. Does PT HEP 4x/wk plus weight lifting after PT exercises. Feels ok after the workouts. Most pain when bending down to pick something up, increased pain with sitting in car , pain when first getting up in am, and with running. Now does inimal running, doing on soft surfaces, puts only 300 miles on a pair of shoes before replacing. 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 Retired from [employer] in November, at most recent appointment with physician discussed chronic pain and was referred to PT. 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 Has Theragun, has foam roller. Sleeps on chest trying to more often sleep on side. Does road and mountain bikiing as well as swimming several times per week, mostly freestyle and breaths only to left. Has had gait and running form evaluation, reports he lands with neutral foot. 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 Having a hard time getting to it with self massage. Uncertain of cause PT-OP-G Mobility & Gait Start: 10/17/21 16:34 Freq: Status: Active Protocol: Document 10/21/21 09:01 [facility] (Rec: 10/22/21 08:56 [facility] [id number]) OP Gait Assessment Gait Gait Assistance Required: Independent Assistive Devices Assistive Device None PT-OP-H Neuro Start: 10/17/21 16:34 Freq: Status: Active Protocol: Document 10/21/21 09:01 [facility] (Rec: 10/22/21 08:56 [facility] [id number]) Sensation Evaluation Gross Sensation Gross Sensation WNL PT-OP-J Posture/Palpation/Skin Start: 10/17/21 16:34 Freq: Status: Active Protocol: Document 10/21/21 09:01 [facility] (Rec: 10/22/21 08:56 [facility] [id number]) Posture Evaluation Position Standing T-Spine Posture Flexible Scoliosis on (R), Fixed Scoliosis on (R) Thorax Posture (R) Prominent L-Spine Posture Fixed Scoliosis on (L) Arm Posture (L) Neutral,(R) Neutral Pelvis Posture Neutral Palpation Assessment Location left L#$ Palpation Findings Soft Tissue Tightness, Tenderness PT-OP-K Range of Motion Start: 10/17/21 16:34 Freq: Status: Active Protocol: Document 10/21/21 09:01 [facility] (Rec: 10/22/21 08:56 [facility] [id number]) Lumbar Spine Range of Motion Lumbar Spine Active Flexion 40 Extension 20 Rotation Left 15 Rotation Right 20 Lateral Flexion Left 40 Lateral Flexion Right 30 Comments painful left sidebending Hip Goniometric Range of Motion Hip Left Flexion w/Knee Flexed 120 Straight Leg Raise 60 Internal Rotation 15 External Rotation 50 Right Flexion w/Knee Flexed 130 Straight Leg Raise 70 Internal Rotation 30 External Rotation 70 Hip ROM Limitations Hip ROM Limitations Soft Tissue Tightness PT-OP-L Special Tests Start: 10/17/21 16:34 Freq: Status: Active Protocol: Document 10/21/21 09:01 [facility] (Rec: 10/22/21 11:03 [facility] [id number]) Special Tests Lumbar Spine Special Tests Straight Leg Raise Test Results negative Standing Flexion Test Results decreased ROM, no radicular symptoms Slump Test Results negative Neural Special Tests- Lower Body Sciatic Nerve Tension Test Results negative PT-OP-M Strength Start: 10/17/21 16:34 Freq: Status: Active Protocol: Document 10/21/21 09:01 [facility] (Rec: 10/22/21 11:03 [facility] [id number]) Hip Strength Hip Manual Muscle Testing Left Flexion (L2) 4+ Good+ Extension (S1) 4+ Good+ Abduction 4+ Good+ Adduction 4+ Good+ External Rotation 4 Good Internal Rotation 4 Good Right Flexion (L2) 4+ Good+ Extension (S1) 4 Good Abduction 4+ Good+ Adduction 4+ Good+ External Rotation 4 Good Internal Rotation 4+ Good+ Knee Strength Knee Manual Muscle Testing Left Flexion (S2) 5 Normal Extension (L3) 5 Normal Right Flexion (S2) 5 Normal Extension (L3) 5 Normal Ankle/Foot Strength Ankle and Foot Manual Muscle Testing Left Dorsiflexion (L4) 5 Normal Plantarflexion (S1) 5 Normal Right Dorsiflexion (L4) 5 Normal Plantarflexion (S1) 5 Normal PT-OP-Q Treatments Start: 10/17/21 16:34 Freq: Status: Active Protocol: Document 11/13/21 09:12 [facility] (Rec: 11/17/21 18:58 [facility] [id number]) Cardio Equipment Elliptical Duration (Minutes) 10 Resistance 10 Other for physiological warm-up, cues for symmetrical movement Manual Therapy Treatment Soft Tissue Mobilization rhomboids, periscapular Mobilization Type Rolling,Strumming,Sustained Pressure,Trigger Point Release Intensity/Depth Moderate Comments cues for deep breathing for muscle and nervous system relaxation lumbar paraspinals, QL Body Location left QL only Mobilization Type Myofascial Release,Strumming, Sustained Pressure Intensity/Depth Moderate Body Position Prone Self-Care/Home Management Treatment Activities Self-Care/Home Management Activities self-massage using ball and corner of door jam for rhomboid massage. PT-OP-R Modalities Start: 10/17/21 16:34 Freq: Status: Active Protocol: Document 11/13/21 09:12 [facility] (Rec: 11/17/21 18:58 [facility] [id number]) Hot Pack/Cold Pack Treatment Hot Pack Location lumbar spine Patient Position Prone Treatment Duration (minutes) 15 Patient Tolerance Good Ultrasound Therapy Treatment left QL Treatment Duration (minutes) 8 Patient Position Prone Frequency Setting (mHz) 1 Mode Setting Continuous Duty Cycle 100% Intensity Setting (w/cm2) 1.5 PT-OP-T Assessment and Plan Start: 10/17/21 16:34 Freq: Status: Active Protocol: Document 11/13/21 09:12 [facility] (Rec: 11/13/21 09:58 [facility] [id number]) Physical Therapy Assessment Goals Three Impairment habitual movement patterns and movements contributing to pain Impairment Patient swims up to 2 miles 3x /wk and only turns head to the right to breath , sleeps prone, potential other habitual posturing and movement contributing to pain Short Term Goal (STG) Patient to be able to begin turning head bilaterally to be able to breath during swimming, modify sleep positioning and work to identify any other habitual movements or positions that may conribute to his pain and movement impairment STG Duration 11/20/21 Credit Card Specialist Goal (LTG) Patient will demonstrate good understanding of potential contribution of habitual postures and movements to his pain. LTG Duration 12/21/21 Two Impairment strength and ROM impairments, scoliosis Impairment muscle imbalances noted in core and hips including decreased ability to stabilize core, decreased flexibility left hip, decreased lumbar rotation, decreased hip extension right. Mild scoliosis Short Term Goal (STG) Patient's current HEP and weight-lifting routine to be reviewed for correct body mechanics, core stabilization and performance STG Duration 11/20/21 Credit Card Specialist Goal (LTG) Patient will be able to perform HEP and weight-lifting routine with good mechanics and core stabilization and demonstrate 5/5 muscle strength bilaterally and symmetrical flexibility and ROM within 5 deg all motions hips and lumbar spine LTG Duration 12/21/21 One Impairment pain left low back 3/10 Impairment pain increases above 3/10 with bending, prolonged sitting or standing, sleeping Group Home Goal (LTG) Pain no greater than 1/10 with all usual activities and positions to improve quality of life and ability to do prior activities LTG Duration 12/21/21 Assessment Summary Assessment Good progress with back pain, possible irritation right scapular region with progression of exercises working entire kinetic chain of spine including side arm lift with bird dog using weight. Had to back off HEP due to right scapular pain, demonstrated good understanding of self-massage using ball, corner of doorjam. Physical Therapy Plan Frequency and Duration Frequency of Treatment 2x/Week Duration of Treatment 8 weeks Plan of Care Start Date 10/21/21 Plan of Care End Date 12/21/21 Therapeutic Interventions Therapeutic Interventions Aquatic Therapy,Manual Therapy ,Neuromuscular Re-education, Patient/Caregiver Education, Self-Care/Home Management, Therapeutic Activities, Therapeutic Exercises Modalities Cold Pack/Ice Massage,Electric Stimulation,Hot Packs, Traction- Mechanical, Ultrasound Next Visit Focus/Plan Next Note Type Treatment Note Next Visit Plan Assess response to today's treatment, assure correct performance of bird dog and instruct to do without weight at this time. Continue PT per POC.
--- NOTE | 2021-12-04 16:34 | PT.OTN ---
Current Diagnoses Scoliosis, unspecified (12/04/21) Low back pain, unspecified (12/04/21) Abnormal posture (12/04/21) Weakness (12/04/21) Physical Therapy Treatment Note PT-OP-A Visit Information Start: 10/17/21 16:34 Freq: Status: Active Protocol: Document 12/04/21 09:03 [facility] (Rec: 12/04/21 09:50 [facility] [id number]) Out-Patient Physical Therapy Visit Information Visit Information Visit Type Treatment Note Visit Start Time 09:03 Visit Stop Time 09:44 Total Visit Minutes 41 Visit Number 8 Evaluation Information Evaluation Date 10/21/21 PT-OP-B Current Condition Start: 10/17/21 16:34 Freq: Status: Active Protocol: Document 11/13/21 09:12 SAK (Rec: 11/17/21 18:58 [facility]AK [id number]) Current Condition History of Current Condition Onset Date 2018 Current Complaints persistent LBP History of Current Condition Went running one night 2018 , a little sore in low back , more sore next day. After resting for a week without improvement started PT, thought all better. Pain came back, had more PT, never has completely gone away and continues to limit his activity. Does PT HEP 4x/wk plus weight lifting after PT exercises. Feels ok after the workouts. Most pain when bending down to pick something up, increased pain with sitting in car , pain when first getting up in am, and with running. Now does inimal running, doing on soft surfaces, puts only 300 miles on a pair of shoes before replacing. 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 Retired from [employer] in November, at most recent appointment with physician discussed chronic pain and was referred to PT. 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 Has Theragun, has foam roller. Sleeps on chest trying to more often sleep on side. Does road and mountain bikiing as well as swimming several times per week, mostly freestyle and breaths only to left. Has had gait and running form evaluation, reports he lands with neutral foot. 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 Back pain has resolved with PT, agreeable to discharge after PT session today. Tolerated 25K run over weekend but has some ankle soreness today. 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 Has weaned himself from sleeping on his stomach. PT-OP-G Mobility & Gait Start: 10/17/21 16:34 Freq: Status: Active Protocol: Document 10/21/21 09:01 [facility] (Rec: 10/22/21 08:56 [facility] [id number]) OP Gait Assessment Gait Gait Assistance Required: Independent Assistive Devices Assistive Device None PT-OP-H Neuro Start: 10/17/21 16:34 Freq: Status: Active Protocol: Document 10/21/21 09:01 [facility] (Rec: 10/22/21 08:56 [facility] [id number]) Sensation Evaluation Gross Sensation Gross Sensation WNL PT-OP-J Posture/Palpation/Skin Start: 10/17/21 16:34 Freq: Status: Active Protocol: Document 10/21/21 09:01 [facility] (Rec: 10/22/21 08:56 [facility] [id number]) Posture Evaluation Position Standing T-Spine Posture Flexible Scoliosis on (R), Fixed Scoliosis on (R) Thorax Posture (R) Prominent L-Spine Posture Fixed Scoliosis on (L) Arm Posture (L) Neutral,(R) Neutral Pelvis Posture Neutral Palpation Assessment Location left L#$ Palpation Findings Soft Tissue Tightness, Tenderness PT-OP-K Range of Motion Start: 10/17/21 16:34 Freq: Status: Active Protocol: Document 10/21/21 09:01 [facility] (Rec: 10/22/21 08:56 [facility] [id number]) Lumbar Spine Range of Motion Lumbar Spine Active Flexion 40 Extension 20 Rotation Left 15 Rotation Right 20 Lateral Flexion Left 40 Lateral Flexion Right 30 Comments painful left sidebending Hip Goniometric Range of Motion Hip Left Flexion w/Knee Flexed 120 Straight Leg Raise 60 Internal Rotation 15 External Rotation 50 Right Flexion w/Knee Flexed 130 Straight Leg Raise 70 Internal Rotation 30 External Rotation 70 Hip ROM Limitations Hip ROM Limitations Soft Tissue Tightness PT-OP-L Special Tests Start: 10/17/21 16:34 Freq: Status: Active Protocol: Document 10/21/21 09:01 [facility] (Rec: 10/22/21 11:03 [facility] [id number]) Special Tests Lumbar Spine Special Tests Straight Leg Raise Test Results negative Standing Flexion Test Results decreased ROM, no radicular symptoms Slump Test Results negative Neural Special Tests- Lower Body Sciatic Nerve Tension Test Results negative PT-OP-M Strength Start: 10/17/21 16:34 Freq: Status: Active Protocol: Document 10/21/21 09:01 [facility] (Rec: 10/22/21 11:03 [facility] [id number]) Hip Strength Hip Manual Muscle Testing Left Flexion (L2) 4+ Good+ Extension (S1) 4+ Good+ Abduction 4+ Good+ Adduction 4+ Good+ External Rotation 4 Good Internal Rotation 4 Good Right Flexion (L2) 4+ Good+ Extension (S1) 4 Good Abduction 4+ Good+ Adduction 4+ Good+ External Rotation 4 Good Internal Rotation 4+ Good+ Knee Strength Knee Manual Muscle Testing Left Flexion (S2) 5 Normal Extension (L3) 5 Normal Right Flexion (S2) 5 Normal Extension (L3) 5 Normal Ankle/Foot Strength Ankle and Foot Manual Muscle Testing Left Dorsiflexion (L4) 5 Normal Plantarflexion (S1) 5 Normal Right Dorsiflexion (L4) 5 Normal Plantarflexion (S1) 5 Normal PT-OP-Q Treatments Start: 10/17/21 16:34 Freq: Status: Active Protocol: Document 12/04/21 09:03 [facility] (Rec: 12/04/21 09:50 [facility] [id number]) Cardio Equipment Elliptical Duration (Minutes) 8 Resistance 10 Other for physiological warm-up, cues for symmetrical movement Therapeutic Exercises Prone Exercises bird dog Prone Exercise Name regular Equipment Used 1/2 foam rollers, yardstick head to pelvis for tactile cues Reps/Minutes 20x Comments cues for neutral pelvis Sitting Exercises butt walking Equipment Used dowel held at spine Reps/Minutes 3 Standing Exercises anterior tib stretch Standing Exercise Name sitting and standing Reps/Minutes 2x30 HC stretch Equipment Used DEEDEE Reps/Minutes 2x30 Comments cues for neutral, toes in lift Resistance 10# to Reps/Minutes 5x Comments picture taken for symmetry at hips and pelvis, verbal and manual cues, Other Exercises BOSU balance Other Exercise Name static and dynamic Reps/Minutes 4 min Self-Care/Home Management Treatment Education Other Education Discussion of current HEP and things to watch for with form. Added ankle flexibility and balance exercises due to potential contribution of right ankle tightness eversion positioning contributing to back pain; patient demonstrated good understanding. HE is highly compliant to HEP. PT-OP-R Modalities Start: 10/17/21 16:34 Freq: Status: Active Protocol: Document 11/13/21 09:12 [facility] (Rec: 11/17/21 18:58 [facility] [id number]) Hot Pack/Cold Pack Treatment Hot Pack Location lumbar spine Patient Position Prone Treatment Duration (minutes) 15 Patient Tolerance Good Ultrasound Therapy Treatment left QL Treatment Duration (minutes) 8 Patient Position Prone Frequency Setting (mHz) 1 Mode Setting Continuous Duty Cycle 100% Intensity Setting (w/cm2) 1.5 PT-OP-T Assessment and Plan Start: 10/17/21 16:34 Freq: Status: Active Protocol: Document 12/04/21 09:03 [facility] (Rec: 12/04/21 09:50 [facility] [id number]) Physical Therapy Assessment Goals Three Impairment habitual movement patterns and movements contributing to pain Impairment Patient swims up to 2 miles 3x /wk and only turns head to the right to breath , sleeps prone, potential other habitual posturing and movement contributing to pain Short Term Goal (STG) Patient to be able to begin turning head bilaterally to be able to breath during swimming, modify sleep positioning and work to identify any other habitual movements or positions that may conribute to his pain and movement impairment STG Duration goal met Controller Mechanic Goal (LTG) Patient will demonstrate good understanding of potential contribution of habitual postures and movements to his pain. LTG Duration goal met Two Impairment strength and ROM impairments, scoliosis Impairment muscle imbalances noted in core and hips including decreased ability to stabilize core, decreased flexibility left hip, decreased lumbar rotation, decreased hip extension right. Mild scoliosis Short Term Goal (STG) Patient's current HEP and weight-lifting routine to be reviewed for correct body mechanics, core stabilization and performance STG Duration goal met Controller Mechanic Goal (LTG) Patient will be able to perform HEP and weight-lifting routine with good mechanics and core stabilization and demonstrate 5/5 muscle strength bilaterally and symmetrical flexibility and ROM within 5 deg all motions hips and lumbar spine LTG Duration goal met One Impairment pain left low back 3/10 Impairment pain increases above 3/10 with bending, prolonged sitting or standing, sleeping Controller Mechanic Goal (LTG) Pain no greater than 1/10 with all usual activities and positions to improve quality of life and ability to do prior activities LTG Duration goal met Assessment Summary Assessment Patient has met all PT goals, demonstrates good understanding of his typical malalignment and able to self- correct. Also demonstrated good understanding of potential contribution of ankle pathology to back pain. He is highly compliant to HEP and motivated to continue his HEP. Physical Therapy Plan Discharge Physical Therapy Discharge Reasons Goals Met
--- NOTE | 2021-12-05 12:58 | PT.OPDS ---
Current Diagnoses Scoliosis, unspecified (12/04/21) Low back pain, unspecified (12/04/21) Abnormal posture (12/04/21) Weakness (12/04/21) Visit Care Team Role Provider Type Eliu Domínguez DO Attending Provider Non-Staff Family Provider Primary Care Provider Referring Provider Specialty: Family Practice Address: [address] [place] [address], [id number] Email: Visit Number Visit Number 8 Discharge Summary PT-OP-B Current Condition Start: 10/17/21 16:34 Freq: Status: Active Protocol: Document 11/13/21 09:12 [facility] (Rec: 11/17/21 18:58 [facility] [id number]) Current Condition History of Current Condition Onset Date 2018 Current Complaints persistent LBP History of Current Condition Went running one night 2018 , a little sore in low back , more sore next day. After resting for a week without improvement started PT, thought all better. Pain came back, had more PT, never has completely gone away and continues to limit his activity. Does PT HEP 4x/wk plus weight lifting after PT exercises. Feels ok after the workouts. Most pain when bending down to pick something up, increased pain with sitting in car , pain when first getting up in am, and with running. Now does inimal running, doing on soft surfaces, puts only 300 miles on a pair of shoes before replacing. 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 Retired from [employer] in November, at most recent appointment with physician discussed chronic pain and was referred to PT. 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 Has Theragun, has foam roller. Sleeps on chest trying to more often sleep on side. Does road and mountain bikiing as well as swimming several times per week, mostly freestyle and breaths only to left. Has had gait and running form evaluation, reports he lands with neutral foot. 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 Back pain has resolved with PT, agreeable to discharge after PT session today. Tolerated 25K run over weekend but has some ankle soreness today. Has right ankle pain and limited mobility as fdc issue. Has weaned himself from sleeping on his stomach. PT-OP-G Mobility & Gait Start: 10/17/21 16:34 Freq: Status: Active Protocol: Document 10/21/21 09:01 [facility] (Rec: 10/22/21 08:56 [facility] [id number]) OP Gait Assessment Gait Gait Assistance Required: Independent Assistive Devices Assistive Device None PT-OP-H Neuro Start: 10/17/21 16:34 Freq: Status: Active Protocol: Document 10/21/21 09:01 [facility] (Rec: 10/22/21 08:56 [facility] [id number]) Sensation Evaluation Gross Sensation Gross Sensation WNL PT-OP-J Posture/Palpation/Skin Start: 10/17/21 16:34 Freq: Status: Active Protocol: Document 10/21/21 09:01 [facility] (Rec: 10/22/21 08:56 [facility] [id number]) Posture Evaluation Position Standing T-Spine Posture Flexible Scoliosis on (R), Fixed Scoliosis on (R) Thorax Posture (R) Prominent L-Spine Posture Fixed Scoliosis on (L) Arm Posture (L) Neutral,(R) Neutral Pelvis Posture Neutral Palpation Assessment Location left L#$ Palpation Findings Soft Tissue Tightness, Tenderness PT-OP-K Range of Motion Start: 10/17/21 16:34 Freq: Status: Active Protocol: Document 10/21/21 09:01 [facility] (Rec: 10/22/21 08:56 [facility] [id number]) Lumbar Spine Range of Motion Lumbar Spine Active Flexion 40 Extension 20 Rotation Left 15 Rotation Right 20 Lateral Flexion Left 40 Lateral Flexion Right 30 Comments painful left sidebending Hip Goniometric Range of Motion Hip Left Flexion w/Knee Flexed 120 Straight Leg Raise 60 Internal Rotation 15 External Rotation 50 Right Flexion w/Knee Flexed 130 Straight Leg Raise 70 Internal Rotation 30 External Rotation 70 Hip ROM Limitations Hip ROM Limitations Soft Tissue Tightness PT-OP-L Special Tests Start: 10/17/21 16:34 Freq: Status: Active Protocol: Document 10/21/21 09:01 [facility] (Rec: 10/22/21 11:03 [facility] [id number]) Special Tests Lumbar Spine Special Tests Straight Leg Raise Test Results negative Standing Flexion Test Results decreased ROM, no radicular symptoms Slump Test Results negative Neural Special Tests- Lower Body Sciatic Nerve Tension Test Results negative PT-OP-M Strength Start: 10/17/21 16:34 Freq: Status: Active Protocol: Document 10/21/21 09:01 [facility] (Rec: 10/22/21 11:03 [facility] [id number]) Hip Strength Hip Manual Muscle Testing Left Flexion (L2) 4+ Good+ Extension (S1) 4+ Good+ Abduction 4+ Good+ Adduction 4+ Good+ External Rotation 4 Good Internal Rotation 4 Good Right Flexion (L2) 4+ Good+ Extension (S1) 4 Good Abduction 4+ Good+ Adduction 4+ Good+ External Rotation 4 Good Internal Rotation 4+ Good+ Knee Strength Knee Manual Muscle Testing Left Flexion (S2) 5 Normal Extension (L3) 5 Normal Right Flexion (S2) 5 Normal Extension (L3) 5 Normal Ankle/Foot Strength Ankle and Foot Manual Muscle Testing Left Dorsiflexion (L4) 5 Normal Plantarflexion (S1) 5 Normal Right Dorsiflexion (L4) 5 Normal Plantarflexion (S1) 5 Normal PT-OP-T Assessment and Plan Start: 10/17/21 16:34 Freq: Status: Active Protocol: Document 12/04/21 09:03 [facility] (Rec: 12/04/21 09:50 [facility] [id number]) Physical Therapy Assessment Goals Three Impairment habitual movement patterns and movements contributing to pain Impairment Patient swims up to 2 miles 3x /wk and only turns head to the right to breath , sleeps prone, potential other habitual posturing and movement contributing to pain Short Term Goal (STG) Patient to be able to begin turning head bilaterally to be able to breath during swimming, modify sleep positioning and work to identify any other habitual movements or positions that may conribute to his pain and movement impairment STG Duration goal met Short Haul Driver Goal (LTG) Patient will demonstrate good understanding of potential contribution of habitual postures and movements to his pain. LTG Duration goal met Two Impairment strength and ROM impairments, scoliosis Impairment muscle imbalances noted in core and hips including decreased ability to stabilize core, decreased flexibility left hip, decreased lumbar rotation, decreased hip extension right. Mild scoliosis Short Term Goal (STG) Patient's current HEP and weight-lifting routine to be reviewed for correct body mechanics, core stabilization and performance STG Duration goal met Mcc Goal (LTG) Patient will be able to perform HEP and weight-lifting routine with good mechanics and core stabilization and demonstrate 5/5 muscle strength bilaterally and symmetrical flexibility and ROM within 5 deg all motions hips and lumbar spine LTG Duration goal met One Impairment pain left low back 3/10 Impairment pain increases above 3/10 with bending, prolonged sitting or standing, sleeping Mcc Goal (LTG) Pain no greater than 1/10 with all usual activities and positions to improve quality of life and ability to do prior activities LTG Duration goal met Assessment Summary Assessment Patient has met all PT goals, demonstrates good understanding of his typical malalignment and able to self- correct. Also demonstrated good understanding of potential contribution of ankle pathology to back pain. He is highly compliant to HEP and motivated to continue his HEP. Physical Therapy Plan Discharge Physical Therapy Discharge Reasons Goals Met
== END 2021-12-06 11:50 ==
LOC: PHYS 09:00
PROVIDERS: Family Provider Student in an Organized Health Care Education/Training Program; PCP Student in an Organized Health Care Education/Training Program; Referring Provider Student in an Organized Health Care Education/Training Program; Visit Provider Student in an Organized Health Care Education/Training Program
DX: M54.50 Low back pain, unspecified (principal); R29.3 Abnormal posture; M41.9 Scoliosis, unspecified; R53.1 Weakness
CPT/HCPCS: 97035; 97110; 97140; 97161; 97535

== ENCOUNTER 2022-02-09 17:31 | Emergency (ER) | payer OTHER, SELFPAY ==
[2022-02-09 17:55] VITALS: BP 159/67; PULSE 40; RESP 18; TEMP 37.2; O2SAT 95; BMI 25.9
[2022-02-09 17:59] VITALS: PULSE 39; O2SAT 98
[2022-02-09 18:00] VITALS: PULSE 42; O2SAT 99
[2022-02-09] MEDS: KETOROLAC 30 MG/ML VIAL 15 MG IV (18:05)
[2022-02-09] MEDS: SODIUM CHLORIDE 0.9% 1,000 ML 1000 ML IV (18:05)
[2022-02-09 18:13] LABS: Alanine Aminotransferase 23 IU/L (<50); Albumin 4.5 g/dL (3.5-5.0); Albumin Globulin Ratio 1.3 (1.0-2.8); Alkaline Phosphatase 50 U/L (38-126); Aspartate Aminotransferase 28 IU/L (17-59); BUN Creatinine Ratio 18.1 (6-22); Blood Urea Nitrogen 13 mg/dL (9-20); Calcium 9.2 mg/dL (8.4-10.2); Carbon Dioxide 25 mmol/L (22-32); Chloride 99 mmol/L (98-107); Estimated Glomerular Filt Rate > 60 mL/min (>60); Globulin 3.5 g/dL (1.7-4.1); Glucose 156 mg/dL (70-100); HEMOLYSIS 41 (0-50); Lipase 63 U/L (23-300); Potassium 4.6 mmol/L (3.4-5.1); Sodium 135 mmol/L (137-145)
[2022-02-09 18:14] LABS: Add Manual Diff / Slide Review NO; Basophils Absolute Auto 0 /uL (0-100); Basophils Percent Auto 0.1 % (0-2); Eosinophils Absolute Auto 0 /uL (0-450); Hematocrit 41.4 % (41-53); Hemoglobin 14.6 g/dL (13.5-17.5); Lymphocytes Absolute Auto 800 /uL (1100-4500); Lymphocytes Percent Auto 10.1 % (25-40); Mean Corpuscular HGB Conc 35.3 % (30-36); Mean Corpuscular Hemoglobin 32.8 PG (26-34); Mean Corpuscular Volume 92.9 fL (80-100); Monocytes Absolute Auto 700 /uL (0-900); Monocytes Percent Auto 7.9 % (3-14); Neutrophils Absolute Auto 6800 /uL (1500-7000); Neutrophils Percent Auto 81.9 % (50-75); Platelet Count 217 X10^3/uL (150-400); Red Blood Cell Count 4.45 X10^6/uL (4.5-5.9); Red Cell Distribution Width 12.7 % (11.6-14.8); White Blood Cell Count 8.3 X10^3/uL (4.5-11.0)
--- NOTE | 2022-02-09 18:17 | ED.HA ---
HPI - Headache General Chief Complaint: Headache Stated Complaint: splitting headache Nausea, rash left rib cage Time Seen by Provider: 02/09/22 18:17 Source: patient Mode of arrival: Ambulatory Limitations: no limitations History of Present Illness HPI Narrative: This is a 46-year-old male with known bradycardia patient states he typically in the 30s. States he does exercise quite a bit. Patient states he developed significant headache on the night of the around midnight which has persisted and increased since. Patient states it initially was nauseated was able to sleep the 1st night last night he was not able to sleep and threw up 4 or 5 times. He has not had any fevers that he is aware of, patient states no vision changes, he has not had a history of migraines or persistent headaches in the past. No chest pain or shortness of breath. No diarrhea, no constipation, no myalgias. No urinary symptoms. Patient has not had any issues with movement or other new neurologic changes. He states he has not had similar symptoms in the past. He states his had COVID 3 and half weeks ago. States his lower back been a little bit stiff today after lying in bed all day. He denies any other past medical history. States he had a hernia repair 2-3 years ago. No known drug allergies. No tobacco, 1-2 glasses of wine week nights, no illicit. Denies any family history of vascular, aneurysmal other issues. Patient does note he has a rash on the left side of his chest which showed up today he states it was a little irritating. He had extra strength Tylenol this morning at 11:00 a.m. but nothing for headache since. Related Data Previous Rx's Medication Instructions Recorded acyclovir 800 mg tablet 800 mg PO 5XD 7 days #35 tabs 02/09/22 acyclovir 800 mg tablet 800 mg PO 5XD 7 days #35 tabs 02/09/22 meloxicam 7.5 mg tablet 7.5 mg PO BID PRN pain #10 tabs 02/09/22 Allergies Allergy/AdvReac Type Severity Reaction Status Date / Time No Known Drug Allergies Allergy Verified 02/09/22 18:05 Review of Systems Review of Systems ROS Unobtainable: All systems reviewed & are unremarkable except as noted in HPI and below Exam Narrative Exam Narrative: GEN: well nourished, well appearing male, alert and oriented x 3, patient appears to be in mild distress. HEENT: Atraumatic, pupils are equal round reactive to light, no nystagmus, extraocular movements are intact, nares are clear, TMs are clear with no fluid, there is no conjunctival pallor. Throat is clear without any exudates, erythema, tonsillar enlargement or uvular deviation, no facial droop. HEART: Regular rate and rhythm without murmur, clicks, rubs. Pulses are equal in upper and lower extremities LUNGS:Lungs clear to auscultation, no wheezes, rales, crackles, chest moves symmetrically ABD:bowel sounds normal, soft, non-tender, no guarding, rebound, rigidity, no masses noted, no hepatosplenomegaly :No CVA tenderness MSCL: Non-tender, no muscle atrophy, muscles strength 5/5 upper and lower extremities, full range of motion, normal gait NEURO:CN 2-12 intact, sensation normal, reflexes 2/4 upper and lower extremities. finger nose finger test normal, heel sheffield test normal SKIN: Patient has erythematous vesicular rash wrapping from the midthoracic from the midline at the spine around to his anterior chest and stopping at midline consistent with shingles at the T 8 dermatome. Initial Vital Signs Initial Vital Signs: Vital Signs Temperature 99.0 F 02/09/22 17:55 Pulse Rate 40 L 02/09/22 17:55 Respiratory Rate 18 02/09/22 17:55 Blood Pressure 159/67 H 02/09/22 17:55 Pulse Oximetry 95 02/09/22 17:55 Oxygen Delivery Method 02/09/22 17:55 Course Orders Ordered: ED Orders 02/09/22 17:48 Complete Blood Count AUTO DIFF Stat Comprehensive Metabolic Panel Stat Lipase Stat 02/09/22 17:49 COVID19 -Nasal RAPID/Pre-Proc Stat 02/09/22 18:07 EKG-12 Lead Stat 02/09/22 18:36 CT head/brain wo con Stat Discontinued Medications Acyclovir (Acyclovir 200 Mg Capsule) 800 mg PO NOW ONE Stop: 02/09/22 19:08 Last Admin: 02/09/22 19:14 Dose: 800 mg Documented By: RAMONITA Sodium Chloride (Normal Saline 0.9%) 1,000 mls @ 1,000 mls/hr IV BOLUS ONE Stop: 02/09/22 18:59 Last Infusion: 02/09/22 18:58 Dose: 0 mls/hr Documented By: Admin: 02/09/22 18:05 Dose: 1,000 mls/hr Documented By: RAMONITA Ketorolac Tromethamine (Ketorolac 30 Mg/Ml Vial) 15 mg IV NOW ONE Stop: 02/09/22 18:01 Last Admin: 02/09/22 18:05 Dose: 15 mg Documented By: RAMONITA Metoclopramide HCl (Metoclopramide 10 Mg/2 Ml Inj) 10 mg IV NOW ONE Stop: 02/09/22 18:30 Last Admin: 02/09/22 18:35 Dose: 10 mg Documented By: RAMONITA Ondansetron HCl (Ondansetron 4 Mg Odt Prepack) 1 bottle MISC SEEINSTR ONE Stop: 02/09/22 19:43 Last Admin: 02/09/22 19:49 Dose: 1 bottle Documented By: RAMONITA Vital Signs Vital signs: Vital Signs - 8 hr 02/09/22 17:55 02/09/22 17:59 02/09/22 18:00 Temperature 99.0 F Pulse Rate 40 L 39 L 42 L Respiratory Rate 18 Blood Pressure 159/67 H Pulse Oximetry 95 98 99 Oxygen Delivery Method Room Air 02/09/22 18:30 02/09/22 19:00 02/09/22 19:30 Temperature Pulse Rate 40 L 45 L 40 L Respiratory Rate 16 21 19 Blood Pressure Pulse Oximetry 98 97 97 Oxygen Delivery Method MDM - Headache Lab Data Result diagrams: 02/09/22 17:48 02/09/22 17:48 Labs: Lab Results 02/09/22 02/09/22 02/09/22 Range/Units 17:48 17:48 17:49 WBC 8.3 (4.5-11.0) X10^3/uL RBC 4.45 L (4.5-5.9) X10^6/uL Hgb 14.6 (13.5-17.5) g/dL Hct 41.4 (41-53) % MCV 92.9 (80-100) fL MCH 32.8 (26-34) PG MCHC 35.3 (30-36) % RDW 12.7 (11.6-14.8) % Plt Count 217 (150-400) X10^3/uL Neut % (Auto) 81.9 H (50-75) % Lymph % (Auto) 10.1 L (25-40) % [place] % (Auto) 7.9 (3-14) % Eos % (Auto) 0.0 L (2-4) % Baso % (Auto) 0.1 (0-2) % Neut # (Auto) 6800 (0937-7944) /uL Lymph # (Auto) 800 L (5643-7870) /uL [place] # (Auto) 700 (0-900) /uL Eos # (Auto) 0 (0-450) /uL Baso # (Auto) 0 (0-100) /uL Sodium 135 L (137-145) mmol/L Potassium 4.6 (3.4-5.1) mmol/L Chloride 99 (98-107) mmol/L Carbon Dioxide 25 (22-32) mmol/L BUN 13 (9-20) mg/dL Creatinine 0.72 (0.66-1.25) mg/dL Estimated GFR > 60 (>60) mL/min BUN/Creatinine Ratio 18.1 (6-22) Glucose 156 H (70-100) mg/dL Calcium 9.2 (8.4-10.2) mg/dL Total Bilirubin 1.0 (0.2-1.3) mg/dL AST 28 (17-59) IU/L ALT 23 (<50) IU/L Alkaline Phosphatase 50 (38-126) U/L Total Protein 8.0 (6.3-8.2) g/dL Albumin 4.5 (3.5-5.0) g/dL Globulin 3.5 (1.7-4.1) g/dL Albumin/Globulin Ratio 1.3 (1.0-2.8) Lipase 63 (23-300) U/L SARS-CoV-2 (PCR) Negative (Negative) Imaging Data CT scan - head: Radiologist's Impression: Close Head CT (Signed) Eliceo Toledo - 02/09/[address] [address] [address] Scan Report Signed Patient: Kamaljit Hudson MR#: [id number] : 1975 Acct:[id number] Age/Sex: 46 / M Date of Service: 02/09/22 Loc: ED Accession Number: [id number] ?? Procedure: CT head/brain wo con Ordering Provider: Andreia Garcia D.O. PROCEDURE:? CT HEAD/BRAIN WO CON ? INDICATIONS:? headache, bradycardia ? TECHNIQUE:? Noncontrast 4.5 mm thick angled axial sections acquired from the foramen magnum to the vertex, with coronal and sagittal reformats.? For radiation dose reduction, the following was used:? automated exposure control, adjustment of mA and/or kV according to patient size.? ? COMPARISON:? None. ? FINDINGS:? Image quality:? Excellent.? ? CSF spaces:? Basal cisterns are patent.? No extra-axial fluid collections.? Ventricles are normal in size and shape.? ? Brain:? No midline shift.? No intracranial masses or hemorrhage.? Lima-white matter interface is normal.? ? Skull and face:? Calvarium and visualized facial bones are intact, without suspicious lesions.? ? Sinuses:? Remote paranasal sinus surgery.? Mild diffuse mucosal thickening of the bilateral anterior and posterior ethmoids. ? IMPRESSION:? ? 1. Chronic sinus disease, previous nasal sinus surgery. ? 2. No evidence of acute intracranial process.? ? ? Dictated by: Eliceo Toledo M.D. on 02/09/2022 at 19:31 ? ? Approved by: Eliceo Toledo M.D. on 02/09/2022 at 19:32? ECG Data Attestation: I personally reviewed and interpreted this ECG as follows: Prior ECG tracings: not available for review Interpretation: Sinus bradycardia, rate of 34 MN 174 QRS of 102 and QTC of 356. No acute ST elevation or depression noted. No priors available. [facility] Narrative Medical decision making narrative: This is a 46-year-old male comes to the emergency department with complaint of headache that started a day and a half ago and has developed rash with some irritation as well. Has been afebrile, no meningeal changes. Patient does have a history of migraines. Patient does have a rash consistent with shingles. He has been afebrile, he has headache but no other neurologic changes. Head CT was obtained, does not show acute change discussed with patient this does not rule out an HSV encephalitis but based on patient's findings today would hold off on LP at this time. Patient is COVID negative. No other major lab abnormalities he is quite bradycardic but this is not new for him. Plan to continue acyclovir he is able to tolerate orally here in the ER and his headache is much better after Toradol. Patient and I discussed all return precautions all questions answered. Discharge Plan Departure Patient Disposition: Home Clinical Impression: Shingles Instructions: DI for Shingles Activity Restrictions/Additional Instructions: You have been diagnosed with shingles today. Please take acyclovir 800 mg 5 times daily. You have also been given a prescription for antinausea medicine you may take 1 tablet every 6 hours as needed. You may take Tylenol up to a 1000 mg every 6 hours as needed for headache and/or meloxicam 1 tablet every 12 hours. Do not take NSAIDs such as ibuprofen or Aleve with meloxicam. Prescription sent to [facility] in [place]. Please return for fevers, rapidly worsening headache, altered mental status, new neck or back pain, persistent vomiting, vision changes, speech changes, difficulty with ambulation or other new or concerning symptoms. Prescriptions: New acyclovir 800 mg tablet 800 mg PO 5XD 7 Days Qty: 35 0RF Rx Instructions: space evenly during waking hours acyclovir 800 mg tablet 800 mg PO 5XD 7 Days Qty: 35 0RF Rx Instructions: space evenly during waking hours meloxicam 7.5 mg tablet 7.5 mg PO BID PRN (Reason: pain) Qty: 10 0RF Referrals: Eliu Domínguez DO [Primary Care Provider] - Visit Report Forms: Patient Portal/API
[2022-02-09 18:30] VITALS: PULSE 40; RESP 16; O2SAT 98
[2022-02-09] MEDS: METOCLOPRAMIDE 10 MG/2 ML INJ IV (18:35)
[2022-02-09 18:36] LABS: COVID19 -Nasal RAPID Negative (Negative)
--- NOTE | 2022-02-09 18:36 | DI.CT.S_ITS ---
PROCEDURE: CT HEAD/BRAIN WO CON INDICATIONS: headache, bradycardia TECHNIQUE: Noncontrast 4.5 mm thick angled axial sections acquired from the foramen magnum to the vertex, with coronal and sagittal reformats. For radiation dose reduction, the following was used: automated exposure control, adjustment of mA and/or kV according to patient size. COMPARISON: None. FINDINGS: Image quality: Excellent. CSF spaces: Basal cisterns are patent. No extra-axial fluid collections. Ventricles are normal in size and shape. Brain: No midline shift. No intracranial masses or hemorrhage. Lima-white matter interface is normal. Skull and face: Calvarium and visualized facial bones are intact, without suspicious lesions. Sinuses: Remote paranasal sinus surgery. Mild diffuse mucosal thickening of the bilateral anterior and posterior ethmoids. IMPRESSION: 1. Chronic sinus disease, previous nasal sinus surgery. 2. No evidence of acute intracranial process. Dictated by: Eliceo Toledo M.D. on 02/09/2022 at 19:31 Approved by: Eliceo Toledo M.D. on 02/09/2022 at 19:32
[2022-02-09 19:00] VITALS: PULSE 45; RESP 21; O2SAT 97
[2022-02-09] MEDS: ACYCLOVIR 200 MG CAPSULE 800 MG PO (19:14)
[2022-02-09 19:30] VITALS: PULSE 40; RESP 19; O2SAT 97
[2022-02-09] MEDS: ONDANSETRON 4 MG ODT PREPACK 1 BOTTLE MISC (19:49)
== END 2022-02-09 20:12 | disposition home or self-care (01) ==
PROVIDERS: Emergency Medicine; Emergency Provider Emergency Medicine; Family Provider Student in an Organized Health Care Education/Training Program; PCP Student in an Organized Health Care Education/Training Program
DX: B02.9 Zoster without complications (principal); R51.9 Headache, unspecified; R00.1 Bradycardia, unspecified; Z20.822 Contact with and (suspected) exposure to COVID-19
CPT/HCPCS: 36415; 70450; 80053; 83690; 85025; 87635; 93005; 93010; 96361; 96374; 96375; 99284; C9803; J1885; J2765